=== PATIENT | male | born 1975 | race Caucasian/White ===

== ENCOUNTER 2019-06-29 20:17 | Emergency (ER) | payer OTHER ==
[~2019-06-29] VITALS: Ht 175.3 cm; Wt 113.6 kg
[~2019-06-29 20:17] MED LIST: OLAN10TA3 PO
[2019-06-29] MEDS ORDERED: MethylPREDNISolone SOD SUCC 125 MG/2 ML VIAL IVP ONE (20:30)
[2019-06-29] MEDS ORDERED: IPRATROPIUM BROMIDE 0.5 MG/2.5 ML NEB SOLUTION NEB ONE ×2 (20:30)
[2019-06-29] MEDS ORDERED: ALBUTEROL SULFATE 2.5 MG/0.5 ML NEB SOLUTION NEB ONE ×2 (20:30)
[2019-06-29 20:40] LABS: BASOPHILS % (AUTO) 0.8 % (0.0-2.0); EOSINOPHILS % (AUTO) 5.8 % (1.0-6.0); HEMATOCRIT 47.9 % (41-53); HEMOGLOBIN 16.4 g/dL (13.5-17.5); LYMPHOCYTES # (AUTO) 3.7 K/uL (1.0-4.8); MEAN CORPUSCULAR HEMOGLOBIN 31.3 pg (26.0-34.0); MEAN CORPUSCULAR HGB CONC 34.2 G/dL (31.0-37.0); MEAN CORPUSCULAR VOLUME 92 fL (80-100); MONOCYTES # (AUTO) 0.7 K/uL (0.1-1.0); MONOCYTES % (AUTO) 6.8 % (2.0-9.0); NEUTROPHILS % (AUTO) 49.6 % (40.0-70.0); PLATELET COUNT (AUTO) 269 K/uL (150-450); RED BLOOD CELL COUNT(AUTO) 5.22 MIL/uL (4.50-5.90)
[2019-06-29] MEDS ORDERED: ALBUTEROL SULFATE HFA 90 MCG/PUFF 8 GM INHALER IH ONE (20:45)
[2019-06-29 20:53] LABS: ANION GAP 13 mmol/L (8-16); CARBON DIOXIDE 28 mmol/L (22-29); CHLORIDE 102 mmol/L (98-107); CREATININE 0.87 mg/dL (0.60-1.30); GLOMERULAR FILTR. RATE CALC > 60 mL/min (>60); GLUCOSE,RANDOM 96 mg/dL (70-110); POTASSIUM 4.1 mmol/L (3.5-5.1); SODIUM SERUM 143 mmol/L (136-145); UREA NITROGEN, BLOOD 8 mg/dL (7-18)
[2019-06-29 20:59] LABS: ALANINE AMINOTRANSFERASE 23 U/L (12-78); ALBUMIN 4.1 g/dL (3.4-5.0); ALKALINE PHOSPHATASE 78 U/L (46-116); ASPARTATE AMINOTRANSFERASE 14 U/L (15-37); BILIRUBIN,TOTAL 0.3 mg/dL (0.1-1.0); TOTAL PROTEIN, SERUM 7.2 g/dL (6.4-8.2)
[2019-06-29 21:20] LABS: B-TYPE NATRIURETIC PEPTIDE 6 pg/mL (0-100)
[2019-06-29 21:56] VITALS: BP 119/103
== END 2019-06-29 22:41 | disposition home or self-care (01) ==
LOC: EMS 20:19
DX: J45.901 Unspecified asthma with (acute) exacerbation (principal); F17.210 Nicotine dependence, cigarettes, uncomplicated; J45.909 Unspecified asthma, uncomplicated; F20.9 Schizophrenia, unspecified; Z79.899 Other long term (current) drug therapy; Z88.0 Allergy status to penicillin
CPT/HCPCS: 36415; 71045; 80053; 83880; 85025; 93005; 94644; 96374; 99285; 99406; J2930; J3535

== ENCOUNTER 2019-07-13 06:52 | Emergency (ER) | payer OTHER ==
[~2019-07-13] VITALS: Ht 175.3 cm; Wt 90.9 kg
[2019-07-13] MEDS ORDERED: ALBUTEROL SULFATE 5 MG/ML 20 ML NEB SOLN [BULK] NEB ONE (07:30)
[2019-07-13] MEDS ORDERED: IPRATROPIUM BROMIDE 0.5 MG/2.5 ML NEB SOLUTION NEB ONE (07:30)
[2019-07-13] MEDS ORDERED: PredniSONE 20 MG TABLET PO ONE (07:30)
[2019-07-13] MEDS ORDERED: ALBUTEROL SULFATE HFA 90 MCG/PUFF 8 GM INHALER IH ONE (07:45)
[2019-07-13 10:11] VITALS: BP 145/85
== END 2019-07-13 10:29 | disposition home or self-care (01) ==
LOC: EMS 06:52
DX: J45.901 Unspecified asthma with (acute) exacerbation (principal); F17.210 Nicotine dependence, cigarettes, uncomplicated; F20.9 Schizophrenia, unspecified; Z88.0 Allergy status to penicillin
CPT/HCPCS: 94640; 99284; 99406; J7512; J3535

== ENCOUNTER 2019-07-31 19:29 | Emergency (ER) | payer OTHER, MEDICARE ==
[~2019-07-31] VITALS: Ht 175.3 cm; Wt 104.5 kg
[2019-07-31] MEDS ORDERED: IPRA4AER IH (19:41)
[2019-07-31] MEDS ORDERED: DEXAMETHASONE 4 MG TABLET PO ONE (19:45)
[2019-07-31] MEDS ORDERED: ALBUTEROL SULFATE HFA 90 MCG/PUFF 8 GM INHALER IH ONE (19:45)
[2019-07-31] MEDS ORDERED: 0.9% SODIUM CHLORIDE 5 ML NEB SOLUTION NEB ONE (20:00)
[2019-07-31] MEDS: IPRATROPIUM BROMIDE 0.5 MG/2.5 ML NEB SOLUTION NEB ONE ×2 (20:08→20:28)
[2019-07-31] MEDS: ALBUTEROL SULFATE 5 MG/ML 20 ML NEB SOLN [BULK] NEB ONE ×2 (20:08→20:28)
[2019-07-31 20:40] VITALS: BP 124/73
== END 2019-07-31 20:56 | disposition home or self-care (01) ==
LOC: EMS 19:30
DX: J45.901 Unspecified asthma with (acute) exacerbation (principal); F17.210 Nicotine dependence, cigarettes, uncomplicated; F20.9 Schizophrenia, unspecified; Z88.0 Allergy status to penicillin; Z79.899 Other long term (current) drug therapy
CPT/HCPCS: 94640; 99283; 99406; J8540; J3535

== ENCOUNTER 2020-01-31 22:18 | Emergency (ER) | payer OTHER ==
[~2020-01-31] VITALS: Ht 175.3 cm; Wt 109.1 kg
[~2020-01-31 22:18] MED LIST changes: +IPRA4AER IH
[2020-01-31 22:28] VITALS: BP 125/73
== END 2020-02-01 00:15 | disposition left against medical advice (07) ==
LOC: EMS 22:25
DX: Z04.6 Encounter for general psychiatric examination, requested by authority (principal); Z53.21 Procedure and treatment not carried out due to patient leaving prior to being seen by health care provider

== ENCOUNTER 2020-02-01 10:24 | Emergency (ER) | payer OTHER ==
[~2020-02-01] VITALS: Ht 175.3 cm; Wt 100.0 kg
[2020-02-01] MEDS ORDERED: LORazepam 1 MG TABLET PO ONE (11:30)
[2020-02-01 11:31] VITALS: BP 131/77
== END 2020-02-01 11:33 | disposition home or self-care (01) ==
LOC: EMS 10:25
DX: F20.9 Schizophrenia, unspecified (principal); F17.210 Nicotine dependence, cigarettes, uncomplicated; F31.9 Bipolar disorder, unspecified; Z76.0 Encounter for issue of repeat prescription; Z88.0 Allergy status to penicillin
CPT/HCPCS: 99406

== ENCOUNTER 2020-03-02 17:43 | Emergency (ER) | payer OTHER ==
[~2020-03-02] VITALS: Ht 177.8 cm; Wt 95.5 kg
[2020-03-02 17:46] VITALS: BP 110/76
[2020-03-02 19:21] LABS: EOSINOPHILS % (AUTO) 2.2 % (1.0-6.0); HEMOGLOBIN 15.5 g/dL (13.5-17.5); LYMPHOCYTES % (AUTO) 34.5 % (22.0-44.0); MEAN CORPUSCULAR HEMOGLOBIN 30.5 pg (26.0-34.0); MEAN CORPUSCULAR HGB CONC 33.6 G/dL (31.0-37.0); MEAN CORPUSCULAR VOLUME 91 fL (80-100); MONOCYTES # (AUTO) 0.9 K/uL (0.1-1.0); MONOCYTES % (AUTO) 9.7 % (2.0-9.0); NEUTROPHILS # (AUTO) 4.7 K/uL (1.8-7.7); NEUTROPHILS % (AUTO) 52.6 % (40.0-70.0); PLATELET COUNT (AUTO) 324 K/uL (150-450); RED BLOOD CELL COUNT(AUTO) 5.08 MIL/uL (4.50-5.90); RED CELL DISTRIBUTION WIDTH 13.2 % (11.5-14.5)
[2020-03-02 19:33] LABS: ANION GAP 7 mmol/L (8-16); CALCIUM, TOTAL 9.4 mg/dL (8.8-10.5); CARBON DIOXIDE 32 mmol/L (22-29); CHLORIDE 101 mmol/L (98-107); CREATININE 0.94 mg/dL (0.60-1.30); GLOMERULAR FILTR. RATE CALC > 60 mL/min (>60); GLUCOSE,RANDOM 92 mg/dL (70-110); POTASSIUM 3.5 mmol/L (3.5-5.1); SODIUM SERUM 140 mmol/L (136-145); UREA NITROGEN, BLOOD 12 mg/dL (7-18)
[2020-03-02] MEDS ORDERED: OLANZapine 5 MG TABLET PO ONE (19:45)
[2020-03-02] MEDS ORDERED: LORazepam 1 MG TABLET PO ONE (19:45)
[2020-03-02 19:48] LABS: ALANINE AMINOTRANSFERASE 25 U/L (12-78); ALBUMIN 4.2 g/dL (3.4-5.0); ALKALINE PHOSPHATASE 67 U/L (46-116); ASPARTATE AMINOTRANSFERASE 28 U/L (15-37); BILIRUBIN,TOTAL 0.7 mg/dL (0.1-1.0); TOTAL PROTEIN, SERUM 7.7 g/dL (6.4-8.2)
== END 2020-03-02 20:29 | disposition home or self-care (01) ==
LOC: EMS 17:44
DX: F41.9 Anxiety disorder, unspecified (principal); F20.0 Paranoid schizophrenia; J45.909 Unspecified asthma, uncomplicated; F17.210 Nicotine dependence, cigarettes, uncomplicated; Z88.0 Allergy status to penicillin
CPT/HCPCS: 36415; 80053; 85025; 99283; 99406; G0480

== ENCOUNTER 2020-05-03 11:05 | Emergency (ER) | payer OTHER ==
[~2020-05-03] VITALS: Ht 172.7 cm; Wt 109.1 kg
[2020-05-03] MEDS ORDERED: OLAN10TA3 PO (11:11)
[2020-05-03 11:38] LABS: GLUCOSE, URINE (UA) NEGATIVE (NEGATIVE); KETONES,URINE TRACE mg/dL (NEGATIVE); LEUKOCYTE ESTERASE ,URINE NEGATIVE (NEGATIVE); NITRATE,URINE NEGATIVE (NEGATIVE); OCCULT BLOOD,URINE NEGATIVE (NEGATIVE); PH,URINE 5.5 (5.0-8.0); PROTEIN,URINE POS 1+ (NEGATIVE)
[2020-05-03] MEDS ORDERED: HydrOXYzine PAMOATE 25 MG CAPSULE PO ONE (11:45)
[2020-05-03 11:52] LABS: AMPHET/METH SCREEN,URINE POSITIVE (NEGATIVE); BARBITURATE SCREEN, URINE NEGATIVE (NEGATIVE); BENZODIAZEPINES SCREEN,URINE NEGATIVE (NEGATIVE); CANNABINOID SCREEN,URINE NEGATIVE (NEGATIVE); COCAINE SCREEN,URINE NEGATIVE (NEGATIVE); METHADONE SCREEN, URINE NEGATIVE (NEGATIVE); OPIATE SCREEN,URINE NEGATIVE (NEGATIVE)
[2020-05-03 11:55] LABS: PHENCYCLIDINE SCREEN,URINE NEGATIVE (NEGATIVE)
[2020-05-03 12:12] LABS: APPEARANCE,URINE HAZY (CLEAR); BILIRUBIN,URINE PRELIM. POSITIVE (NEGATIVE)
[2020-05-03] MEDS ORDERED: ASPIRIN 81 MG CHEWABLE TABLET PO ONE (12:15)
[2020-05-03] MEDS ORDERED: ASPIRIN 325 MG TABLET PO ONE (12:15)
[2020-05-03 12:16] LABS: BACTERIA,URINE None Seen /HPF (None Seen); CALCIUM OXALATE CRYSTALS,UR Many /LPF (None Seen); RBC,URINE 0-2 /HPF (0-2); TRANSITIONAL EPI CELLS,URINE Few /LPF (None Seen); WBC,URINE 0-2 /HPF (0-5)
[2020-05-03 12:34] VITALS: BP 117/74
== END 2020-05-03 12:36 | disposition home or self-care (01) ==
LOC: EMS 11:09
DX: F20.9 Schizophrenia, unspecified (principal); F41.9 Anxiety disorder, unspecified; F15.10 Other stimulant abuse, uncomplicated; F17.210 Nicotine dependence, cigarettes, uncomplicated; J45.909 Unspecified asthma, uncomplicated; Z88.0 Allergy status to penicillin
CPT/HCPCS: 99406

== ENCOUNTER 2020-06-10 17:12 | Inpatient (IN) | payer MEDICARE, MEDICAID ==
[~2020-06-10] VITALS: Ht 177.8 cm; Wt 94.3 kg
[~2020-06-10 17:12] MED LIST changes: -IPRA4AER IH
[2020-06-10 18:29] LABS: BASOPHILS % (AUTO) 0.8 % (0.0-2.0); EOSINOPHILS % (AUTO) 5.5 % (1.0-6.0); HEMATOCRIT 49.8 % (41-53); HEMOGLOBIN 16.5 g/dL (13.5-17.5); LYMPHOCYTES # (AUTO) 2.8 K/uL (1.0-4.8); LYMPHOCYTES % (AUTO) 32.8 % (22.0-44.0); MEAN CORPUSCULAR HEMOGLOBIN 30.1 pg (26.0-34.0); MEAN CORPUSCULAR HGB CONC 33.2 G/dL (31.0-37.0); MEAN CORPUSCULAR VOLUME 91 fL (80-100); MONOCYTES # (AUTO) 0.9 K/uL (0.1-1.0); MONOCYTES % (AUTO) 10.9 % (2.0-9.0); NEUTROPHILS # (AUTO) 4.3 K/uL (1.8-7.7); PLATELET COUNT (AUTO) 275 K/uL (150-450); RED CELL DISTRIBUTION WIDTH 13.6 % (11.5-14.5)
[2020-06-10 18:34] LABS: ANION GAP 1 mmol/L (8-16); CALCIUM, TOTAL 9.6 mg/dL (8.8-10.5); CARBON DIOXIDE 35 mmol/L (22-29); CHLORIDE 102 mmol/L (98-107); CREATININE 1.26 mg/dL (0.60-1.30); GLOMERULAR FILTR. RATE CALC > 60 mL/min (>60); GLUCOSE,RANDOM 109 mg/dL (70-110); POTASSIUM 4.3 mmol/L (3.5-5.1); SODIUM SERUM 138 mmol/L (136-145); UREA NITROGEN, BLOOD 16 mg/dL (7-18)
[2020-06-10 18:40] LABS: ALANINE AMINOTRANSFERASE 25 U/L (12-78); ALBUMIN 4.5 g/dL (3.4-5.0); ALKALINE PHOSPHATASE 75 U/L (46-116); ASPARTATE AMINOTRANSFERASE 19 U/L (15-37); BILIRUBIN,TOTAL 0.9 mg/dL (0.1-1.0); TOTAL PROTEIN, SERUM 8.3 g/dL (6.4-8.2)
[2020-06-10 18:59] LABS: AMPHET/METH SCREEN,URINE POSITIVE (NEGATIVE); BARBITURATE SCREEN, URINE NEGATIVE (NEGATIVE); BENZODIAZEPINES SCREEN,URINE NEGATIVE (NEGATIVE); CANNABINOID SCREEN,URINE NEGATIVE (NEGATIVE); COCAINE SCREEN,URINE NEGATIVE (NEGATIVE); METHADONE SCREEN, URINE NEGATIVE (NEGATIVE); OPIATE SCREEN,URINE NEGATIVE (NEGATIVE); PHENCYCLIDINE SCREEN,URINE NEGATIVE (NEGATIVE)
[2020-06-10] MEDS ORDERED: LORazepam 2 MG/ML VIAL IM ONE (20:15)
[2020-06-10] MEDS ORDERED: DiphenhydrAMINE HCL 50 MG/ML VIAL IM ONE (20:15)
[2020-06-10] MEDS ORDERED: HALOPERIDOL LACTATE 5 MG/ML VIAL IM ONE (20:15)
[2020-06-10] MEDS ORDERED: ZOLPIDEM TARTRATE 10 MG TABLET PO PRN (20:45)
[2020-06-11 05:20] LABS: CHOL/HDL RATIO 3.9 (4.2-7.3); CHOLESTEROL 195 mg/dL (131-200); HDL CHOLESTEROL 50 mg/dL (40-60); LDL CHOL (CALC.) 130 mg/dL (0-130); TRIGLYCERIDES 73 mg/dL (15-150)
[2020-06-11] MEDS ORDERED: ONDANSETRON HCL 4 MG TABLET PO PRN (07:30)
[2020-06-11] MEDS ORDERED: LOPERAMIDE HCL 2 MG CAPSULE PO PRN (07:30)
[2020-06-11] MEDS ORDERED: MAG HYDROX/AL HYDROX/SIMETH ES 30 ML SUSPENSION UDCUP PO PRN (07:30)
[2020-06-11] MEDS ORDERED: MAGNESIUM HYDROXIDE SUSPENSION 30 ML UDCUP PO PRN (07:30)
[2020-06-11] MEDS ORDERED: PETROLATUM,WHITE 28 GM JELLY TP PRN (07:30)
[2020-06-11] MEDS ORDERED: ACETAMINOPHEN 325 MG TABLET PO PRN (07:30)
[2020-06-11] MEDS ORDERED: GuaiFENesin/D-METHORPHAN [SUGAR-FREE] 200-20MG/10 ML SYRUP UDCUP PO PRN (07:30)
[2020-06-11] MEDS ORDERED: CloNIDine HCL 0.1 MG TABLET PO PRN (07:30)
[2020-06-11] MEDS ORDERED: DOCUSATE SODIUM 100 MG CAPSULE PO PRN (07:30)
[2020-06-11] MEDS ORDERED: ALBUTEROL SULFATE HFA 90 MCG/PUFF 8 GM INHALER IH PRN (07:30)
[2020-06-11] MEDS ORDERED: IBUPROFEN 400 MG TABLET PO PRN (07:30)
[2020-06-12 02:25] VITALS: BP 107/54
[2020-06-12 08:12] VITALS: BP 126/61
[2020-06-12 16:00] VITALS: BP 138/74
[2020-06-12] MEDS: HALOPERIDOL 5 MG TABLET PO PRN (19:44)
[2020-06-12] MEDS: NICOTINE 14 MG/24 HOUR PATCH TD PRN (19:44)
[2020-06-12] MEDS: LORazepam 2 MG TABLET PO PRN (19:44)
[2020-06-13 06:06] VITALS: BP 128/80
[2020-06-13 08:08] VITALS: BP 124/69
[2020-06-13 08:09] LABS: FREE T4 (FREE THYROXINE) 1.06 ng/dL (0.76-1.46)
[2020-06-13] MEDS: LORazepam 2 MG TABLET PO PRN ×2 (09:14→16:20)
[2020-06-13 16:09] VITALS: BP 116/65
[2020-06-13] MEDS: HALOPERIDOL 5 MG TABLET PO PRN (16:20)
[2020-06-13] MEDS: NICOTINE 14 MG/24 HOUR PATCH TD PRN (16:20)
[2020-06-13] MEDS ORDERED: OLANZapine 10 MG TABLET PO SCH (21:00)
[2020-06-14 06:09] VITALS: BP 110/70
[2020-06-14 08:56] VITALS: BP 119/62
[2020-06-14] MEDS ORDERED: OLAN10TA3 PO (15:49)
== END 2020-06-14 17:00 | disposition home or self-care (01) | DRG 885 ==
LOC: EMS 17:21 → B3A 20:54 → UNDOADMIN 20:54 → B3A 06-11 22:35
PROVIDERS: ADMIT Psychiatry & Neurology Child & Adolescent Psychiatry; ATTEND Psychiatry & Neurology Child & Adolescent Psychiatry
DX: F25.0 Schizoaffective disorder, bipolar type (principal); R45.851 Suicidal ideations; J45.909 Unspecified asthma, uncomplicated; I10 Essential (primary) hypertension; F41.9 Anxiety disorder, unspecified; F17.210 Nicotine dependence, cigarettes, uncomplicated; F15.90 Other stimulant use, unspecified, uncomplicated; F10.10 Alcohol abuse, uncomplicated; Z20.828 Contact with and (suspected) exposure to other viral communicable diseases; Z88.0 Allergy status to penicillin
CPT/HCPCS: 84439; 84443; 87426; 96372; G0480; J1200; J1630; J2060

== ENCOUNTER 2020-06-25 14:23 | Emergency (ER) | payer OTHER, MEDICAID ==
[~2020-06-25] VITALS: Ht 180.3 cm; Wt 76.8 kg
[2020-06-25 14:25] VITALS: BP 141/75
== END 2020-06-25 16:59 | disposition left against medical advice (07) ==
LOC: EMS 14:33
DX: F20.0 Paranoid schizophrenia (principal); F41.9 Anxiety disorder, unspecified; J45.909 Unspecified asthma, uncomplicated; I10 Essential (primary) hypertension; F15.90 Other stimulant use, unspecified, uncomplicated; F17.210 Nicotine dependence, cigarettes, uncomplicated; Z88.0 Allergy status to penicillin
CPT/HCPCS: 99283; Z7502

== ENCOUNTER 2020-06-26 18:54 | Emergency (ER) | payer OTHER ==
[~2020-06-26] VITALS: Ht 175.3 cm; Wt 90.0 kg
[2020-06-26 20:15] VITALS: BP 114/66
[2020-06-26] MEDS ORDERED: OLANZapine 5 MG TABLET PO ONE (20:15)
== END 2020-06-26 20:27 | disposition home or self-care (01) ==
LOC: EMS 18:54
DX: F20.9 Schizophrenia, unspecified (principal); F17.210 Nicotine dependence, cigarettes, uncomplicated; I10 Essential (primary) hypertension; F15.90 Other stimulant use, unspecified, uncomplicated

== ENCOUNTER 2020-07-03 16:39 | Emergency (ER) | payer OTHER ==
[~2020-07-03] VITALS: Ht 175.3 cm; Wt 86.4 kg
[2020-07-03] MEDS ORDERED: LORazepam 2 MG TABLET PO ONE (17:00)
[2020-07-03] MEDS ORDERED: HALOPERIDOL 5 MG TABLET PO ONE (17:00)
[2020-07-03 18:43] LABS: BASOPHILS % (AUTO) 0.8 % (0.0-2.0); HEMATOCRIT 47.9 % (41-53); HEMOGLOBIN 16.2 g/dL (13.5-17.5); LYMPHOCYTES # (AUTO) 3.2 K/uL (1.0-4.8); LYMPHOCYTES % (AUTO) 37.1 % (22.0-44.0); MEAN CORPUSCULAR HEMOGLOBIN 30.2 pg (26.0-34.0); MEAN CORPUSCULAR HGB CONC 33.8 G/dL (31.0-37.0); MEAN CORPUSCULAR VOLUME 89 fL (80-100); MONOCYTES # (AUTO) 0.7 K/uL (0.1-1.0); MONOCYTES % (AUTO) 8.6 % (2.0-9.0); NEUTROPHILS # (AUTO) 4.2 K/uL (1.8-7.7); NEUTROPHILS % (AUTO) 49.5 % (40.0-70.0); PLATELET COUNT (AUTO) 295 K/uL (150-450); RED BLOOD CELL COUNT(AUTO) 5.36 MIL/uL (4.50-5.90); RED CELL DISTRIBUTION WIDTH 13.2 % (11.5-14.5)
[2020-07-03 18:55] LABS: ANION GAP 9 mmol/L (8-16); CALCIUM, TOTAL 8.9 mg/dL (8.8-10.5); CARBON DIOXIDE 32 mmol/L (22-29); CHLORIDE 101 mmol/L (98-107); CREATININE 0.91 mg/dL (0.60-1.30); GLOMERULAR FILTR. RATE CALC > 60 mL/min (>60); GLUCOSE,RANDOM 84 mg/dL (70-110); POTASSIUM 3.3 mmol/L (3.5-5.1); SODIUM SERUM 142 mmol/L (136-145); UREA NITROGEN, BLOOD 10 mg/dL (7-18)
[2020-07-03 19:00] LABS: ALANINE AMINOTRANSFERASE 23 U/L (12-78); ALBUMIN 4.2 g/dL (3.4-5.0); ALKALINE PHOSPHATASE 78 U/L (46-116); ASPARTATE AMINOTRANSFERASE 17 U/L (15-37); BILIRUBIN,TOTAL 1.6 mg/dL (0.1-1.0); TOTAL PROTEIN, SERUM 7.3 g/dL (6.4-8.2)
[2020-07-03 21:00] VITALS: BP 119/79
[2020-07-03] MEDS ORDERED: OLANZapine 5 MG TABLET PO ONE (22:30)
== END 2020-07-03 22:31 | disposition home or self-care (01) ==
LOC: EMS 16:39
DX: F20.9 Schizophrenia, unspecified (principal); F15.10 Other stimulant abuse, uncomplicated; J45.909 Unspecified asthma, uncomplicated; I10 Essential (primary) hypertension; F41.9 Anxiety disorder, unspecified; F17.210 Nicotine dependence, cigarettes, uncomplicated
CPT/HCPCS: 36415; 80053; 85025; 99284; G0480

== ENCOUNTER 2020-07-18 13:07 | Emergency (ER) | payer OTHER ==
[~2020-07-18] VITALS: Ht 175.3 cm; Wt 90.9 kg
[2020-07-18 13:48] VITALS: BP 122/71
== END 2020-07-18 13:51 | disposition home or self-care (01) ==
LOC: EMS 13:12
DX: Z76.0 Encounter for issue of repeat prescription (principal); F20.9 Schizophrenia, unspecified; F41.9 Anxiety disorder, unspecified; I10 Essential (primary) hypertension; J45.909 Unspecified asthma, uncomplicated; F15.90 Other stimulant use, unspecified, uncomplicated; F17.210 Nicotine dependence, cigarettes, uncomplicated; Z88.1 Allergy status to other antibiotic agents
CPT/HCPCS: Z7502

== ENCOUNTER 2020-07-27 11:56 | Emergency (ER) | payer OTHER ==
[~2020-07-27] VITALS: Ht 175.3 cm; Wt 90.9 kg
[2020-07-27 11:59] VITALS: BP 119/65
== END 2020-07-27 12:38 | disposition home or self-care (01) ==
LOC: EMS 11:56
DX: F20.9 Schizophrenia, unspecified (principal); I10 Essential (primary) hypertension; F41.9 Anxiety disorder, unspecified; J45.909 Unspecified asthma, uncomplicated; F17.210 Nicotine dependence, cigarettes, uncomplicated; F15.90 Other stimulant use, unspecified, uncomplicated; Z76.0 Encounter for issue of repeat prescription; Z88.0 Allergy status to penicillin; Z79.899 Other long term (current) drug therapy

== ENCOUNTER 2020-08-05 10:34 | Emergency (ER) | payer OTHER ==
[~2020-08-05] VITALS: Ht 180.3 cm; Wt 86.4 kg
[2020-08-05 10:35] VITALS: BP 115/73
[2020-08-05 11:25] LABS: BASOPHILS % (AUTO) 0.8 % (0.0-2.0); EOSINOPHILS % (AUTO) 2.7 % (1.0-6.0); HEMATOCRIT 45.4 % (41-53); HEMOGLOBIN 15.8 g/dL (13.5-17.5); LYMPHOCYTES # (AUTO) 1.6 K/uL (1.0-4.8); LYMPHOCYTES % (AUTO) 30.9 % (22.0-44.0); MEAN CORPUSCULAR HEMOGLOBIN 31.3 pg (26.0-34.0); MEAN CORPUSCULAR HGB CONC 34.8 G/dL (31.0-37.0); MEAN CORPUSCULAR VOLUME 90 fL (80-100); MONOCYTES # (AUTO) 0.4 K/uL (0.1-1.0); MONOCYTES % (AUTO) 6.9 % (2.0-9.0); NEUTROPHILS # (AUTO) 3.1 K/uL (1.8-7.7); NEUTROPHILS % (AUTO) 58.7 % (40.0-70.0); PLATELET COUNT (AUTO) 255 K/uL (150-450); RED BLOOD CELL COUNT(AUTO) 5.04 MIL/uL (4.50-5.90); RED CELL DISTRIBUTION WIDTH 13.8 % (11.5-14.5)
[2020-08-05 11:35] LABS: ANION GAP 7 mmol/L (8-16); CALCIUM, TOTAL 9.2 mg/dL (8.8-10.5); CARBON DIOXIDE 31 mmol/L (22-29); CHLORIDE 102 mmol/L (98-107); CREATININE 0.72 mg/dL (0.60-1.30); GLOMERULAR FILTR. RATE CALC > 60 mL/min (>60); GLUCOSE,RANDOM 56 mg/dL (70-110); POTASSIUM 3.6 mmol/L (3.5-5.1); SODIUM SERUM 140 mmol/L (136-145); UREA NITROGEN, BLOOD 10 mg/dL (7-18)
[2020-08-05 11:41] LABS: ALANINE AMINOTRANSFERASE 21 U/L (12-78); ALBUMIN 3.6 g/dL (3.4-5.0); ALKALINE PHOSPHATASE 68 U/L (46-116); ASPARTATE AMINOTRANSFERASE 18 U/L (15-37); BILIRUBIN,TOTAL 0.7 mg/dL (0.1-1.0); TOTAL PROTEIN, SERUM 7.1 g/dL (6.4-8.2)
[2020-08-05] MEDS ORDERED: OLANZapine 5 MG RAPDIS TABLET PO ONE (11:45)
== END 2020-08-05 12:05 | disposition home or self-care (01) ==
LOC: EMS 10:35
DX: F20.9 Schizophrenia, unspecified (principal); F17.210 Nicotine dependence, cigarettes, uncomplicated; F41.9 Anxiety disorder, unspecified; J45.909 Unspecified asthma, uncomplicated; I10 Essential (primary) hypertension; F19.90 Other psychoactive substance use, unspecified, uncomplicated; Z88.0 Allergy status to penicillin
CPT/HCPCS: 36415; 80053; 85025; 99283; 99406; G0480

== ENCOUNTER 2020-08-19 11:10 | Emergency (ER) | payer OTHER ==
[~2020-08-19] VITALS: Ht 175.3 cm; Wt 86.4 kg
[2020-08-19 12:17] VITALS: BP 141/84
[2020-08-19] MEDS ORDERED: OLANZapine 5 MG TABLET PO ONE (12:30)
== END 2020-08-19 15:55 | disposition home or self-care (01) ==
LOC: EMS 15:29
DX: F20.9 Schizophrenia, unspecified (principal); F41.9 Anxiety disorder, unspecified; J45.909 Unspecified asthma, uncomplicated; I10 Essential (primary) hypertension; F17.210 Nicotine dependence, cigarettes, uncomplicated; F19.90 Other psychoactive substance use, unspecified, uncomplicated; Z88.0 Allergy status to penicillin

== ENCOUNTER 2020-09-15 11:28 | Emergency (ER) | payer OTHER | END 2020-09-15 13:10 | disposition left against medical advice (07) | LOC: EMS 11:30 | DX: Z76.0 Encounter for issue of repeat prescription (principal); Z53.21 Procedure and treatment not carried out due to patient leaving prior to being seen by health care provider ==

== ENCOUNTER 2020-09-17 16:48 | Emergency (ER) | payer OTHER ==
[~2020-09-17] VITALS: Ht 175.3 cm; Wt 86.4 kg
[2020-09-17 16:50] VITALS: BP 150/90
== END 2020-09-17 18:00 | disposition left against medical advice (07) ==
LOC: EMS 16:50
DX: Z76.0 Encounter for issue of repeat prescription (principal); Z53.21 Procedure and treatment not carried out due to patient leaving prior to being seen by health care provider

== ENCOUNTER 2020-09-21 12:49 | Emergency (ER) | payer OTHER ==
[~2020-09-21] VITALS: Ht 175.3 cm; Wt 100.0 kg
[2020-09-21 12:50] VITALS: BP 148/82
[2020-09-21] MEDS ORDERED: OLAN10TA3 PO (12:52)
[2020-09-21] MEDS ORDERED: OLANZapine 5 MG TABLET PO ONE (13:00)
[2020-09-21 14:30] LABS: BASOPHILS % (AUTO) 0.7 % (0.0-2.0); EOSINOPHILS % (AUTO) 3.8 % (1.0-6.0); HEMATOCRIT 46.9 % (41-53); HEMOGLOBIN 15.9 g/dL (13.5-17.5); LYMPHOCYTES # (AUTO) 2.6 K/uL (1.0-4.8); LYMPHOCYTES % (AUTO) 29.3 % (22.0-44.0); MEAN CORPUSCULAR HEMOGLOBIN 30.4 pg (26.0-34.0); MEAN CORPUSCULAR HGB CONC 33.8 G/dL (31.0-37.0); MEAN CORPUSCULAR VOLUME 90 fL (80-100); MONOCYTES # (AUTO) 0.8 K/uL (0.1-1.0); MONOCYTES % (AUTO) 9.2 % (2.0-9.0); PLATELET COUNT (AUTO) 286 K/uL (150-450); RED BLOOD CELL COUNT(AUTO) 5.22 MIL/uL (4.50-5.90)
[2020-09-21 14:45] LABS: ANION GAP 9 mmol/L (8-16); CALCIUM, TOTAL 9.4 mg/dL (8.8-10.5); CARBON DIOXIDE 27 mmol/L (22-29); CHLORIDE 104 mmol/L (98-107); CREATININE 0.75 mg/dL (0.60-1.30); GLOMERULAR FILTR. RATE CALC > 60 mL/min (>60); GLUCOSE,RANDOM 95 mg/dL (70-110); POTASSIUM 3.9 mmol/L (3.5-5.1); SODIUM SERUM 140 mmol/L (136-145); UREA NITROGEN, BLOOD 11 mg/dL (7-18)
[2020-09-21 14:51] LABS: ALANINE AMINOTRANSFERASE 22 U/L (12-78); ALKALINE PHOSPHATASE 80 U/L (46-116); ASPARTATE AMINOTRANSFERASE 15 U/L (15-37); BILIRUBIN,TOTAL 0.5 mg/dL (0.1-1.0); TOTAL PROTEIN, SERUM 7.8 g/dL (6.4-8.2)
== END 2020-09-21 16:59 | disposition left against medical advice (07) ==
LOC: EMS 12:49
DX: F20.9 Schizophrenia, unspecified (principal); F17.210 Nicotine dependence, cigarettes, uncomplicated; F15.90 Other stimulant use, unspecified, uncomplicated; J45.909 Unspecified asthma, uncomplicated; F41.9 Anxiety disorder, unspecified; Z88.0 Allergy status to penicillin
CPT/HCPCS: 80053; 85025; 99283; G0480

== ENCOUNTER 2020-09-28 16:23 | Emergency (ER) | payer OTHER ==
[~2020-09-28] VITALS: Ht 175.3 cm; Wt 90.9 kg
[2020-09-28 16:32] VITALS: BP 127/71
== END 2020-09-28 19:41 | disposition left against medical advice (07) ==
LOC: EMS 16:23
DX: Z04.6 Encounter for general psychiatric examination, requested by authority (principal); Z53.21 Procedure and treatment not carried out due to patient leaving prior to being seen by health care provider

== ENCOUNTER 2020-09-29 20:45 | Emergency (ER) | payer OTHER ==
[~2020-09-29] VITALS: Ht 175.3 cm; Wt 90.9 kg
[2020-09-30 00:18] LABS: BASOPHILS % (AUTO) 0.6 % (0.0-2.0); EOSINOPHILS % (AUTO) 4.4 % (1.0-6.0); HEMATOCRIT 48.8 % (41-53); HEMOGLOBIN 16.4 g/dL (13.5-17.5); LYMPHOCYTES # (AUTO) 3.3 K/uL (1.0-4.8); LYMPHOCYTES % (AUTO) 36.3 % (22.0-44.0); MEAN CORPUSCULAR HEMOGLOBIN 30.4 pg (26.0-34.0); MEAN CORPUSCULAR HGB CONC 33.6 G/dL (31.0-37.0); MEAN CORPUSCULAR VOLUME 91 fL (80-100); MONOCYTES # (AUTO) 0.7 K/uL (0.1-1.0); MONOCYTES % (AUTO) 7.8 % (2.0-9.0); NEUTROPHILS # (AUTO) 4.6 K/uL (1.8-7.7); NEUTROPHILS % (AUTO) 50.9 % (40.0-70.0); PLATELET COUNT (AUTO) 280 K/uL (150-450); RED BLOOD CELL COUNT(AUTO) 5.39 MIL/uL (4.50-5.90); RED CELL DISTRIBUTION WIDTH 13.8 % (11.5-14.5)
[2020-09-30 00:27] LABS: ANION GAP 5 mmol/L (8-16); CALCIUM, TOTAL 9.2 mg/dL (8.8-10.5); CARBON DIOXIDE 32 mmol/L (22-29); CHLORIDE 103 mmol/L (98-107); CREATININE 0.89 mg/dL (0.60-1.30); GLOMERULAR FILTR. RATE CALC > 60 mL/min (>60); GLUCOSE,RANDOM 91 mg/dL (70-110); POTASSIUM 4.3 mmol/L (3.5-5.1); SODIUM SERUM 140 mmol/L (136-145); UREA NITROGEN, BLOOD 12 mg/dL (7-18)
[2020-09-30 00:33] LABS: ALANINE AMINOTRANSFERASE 20 U/L (12-78); ALBUMIN 4.1 g/dL (3.4-5.0); ALKALINE PHOSPHATASE 71 U/L (46-116); ASPARTATE AMINOTRANSFERASE 15 U/L (15-37); BILIRUBIN,TOTAL 0.6 mg/dL (0.1-1.0); TOTAL PROTEIN, SERUM 7.9 g/dL (6.4-8.2)
[2020-09-30 03:39] VITALS: BP 134/78
[2020-09-30] MEDS ORDERED: OLANZapine 5 MG TABLET PO ONE (05:00)
== END 2020-09-30 05:30 | disposition home or self-care (01) ==
LOC: EMS 20:45
DX: F41.9 Anxiety disorder, unspecified (principal); J45.909 Unspecified asthma, uncomplicated; I10 Essential (primary) hypertension; F20.9 Schizophrenia, unspecified; F17.210 Nicotine dependence, cigarettes, uncomplicated; F12.90 Cannabis use, unspecified, uncomplicated; Z76.0 Encounter for issue of repeat prescription; Z88.0 Allergy status to penicillin
CPT/HCPCS: 80053; 85025; 99283; G0480

== ENCOUNTER 2020-10-18 15:52 | Emergency (ER) | payer OTHER ==
[~2020-10-18] VITALS: Ht 172.7 cm; Wt 77.3 kg
[2020-10-18 15:54] VITALS: BP 143/79
== END 2020-10-18 16:18 | disposition home or self-care (01) ==
LOC: EMS 15:52
DX: F20.9 Schizophrenia, unspecified (principal); F17.210 Nicotine dependence, cigarettes, uncomplicated; F15.10 Other stimulant abuse, uncomplicated; J45.909 Unspecified asthma, uncomplicated; I10 Essential (primary) hypertension; F41.9 Anxiety disorder, unspecified; Z76.0 Encounter for issue of repeat prescription
CPT/HCPCS: Z7502

== ENCOUNTER 2020-11-23 15:37 | Inpatient (IN) | payer MEDICARE, MEDICAID ==
[~2020-11-23] VITALS: Ht 175.3 cm; Wt 90.9 kg
[2020-11-23] MEDS ORDERED: OLANZapine 5 MG TABLET PO ONE (17:00)
[2020-11-23 17:04] LABS: COVID AG,FIA SOURCE NASOPHARYNGEAL
[2020-11-23] MEDS ORDERED: HALOPERIDOL LACTATE 5 MG/ML VIAL IM ONE (17:45)
[2020-11-23] MEDS ORDERED: DiphenhydrAMINE HCL 50 MG/ML VIAL IM ONE (17:45)
[2020-11-23] MEDS ORDERED: LORazepam 2 MG/ML VIAL IM ONE (17:45)
[2020-11-23 20:12] LABS: AMPHET/METH SCREEN,URINE POSITIVE (NEGATIVE); BARBITURATE SCREEN, URINE NEGATIVE (NEGATIVE); BENZODIAZEPINES SCREEN,URINE NEGATIVE (NEGATIVE); CANNABINOID SCREEN,URINE NEGATIVE (NEGATIVE); COCAINE SCREEN,URINE NEGATIVE (NEGATIVE); METHADONE SCREEN, URINE NEGATIVE (NEGATIVE); OPIATE SCREEN,URINE NEGATIVE (NEGATIVE)
[2020-11-23 20:17] LABS: PHENCYCLIDINE SCREEN,URINE NEGATIVE (NEGATIVE)
[2020-11-23 21:57] LABS: APPEARANCE,URINE CLEAR (CLEAR); BILIRUBIN,URINE NEGATIVE (NEGATIVE); GLUCOSE, URINE (UA) NEGATIVE (NEGATIVE); KETONES,URINE NEGATIVE (NEGATIVE); LEUKOCYTE ESTERASE ,URINE NEGATIVE (NEGATIVE); NITRATE,URINE NEGATIVE (NEGATIVE); OCCULT BLOOD,URINE NEGATIVE (NEGATIVE); PROTEIN,URINE NEGATIVE (NEGATIVE); UROBILINOGEN,URINE 0.2 mg/dL (<=1.0)
[2020-11-24] MEDS: HALOPERIDOL 5 MG TABLET PO PRN (07:50)
[2020-11-24] MEDS: LORazepam 2 MG TABLET PO PRN (07:50)
[2020-11-24] MEDS ORDERED: MAG HYDROX/AL HYDROX/SIMETH ES 30 ML SUSPENSION UDCUP PO PRN (08:45)
[2020-11-24] MEDS ORDERED: DOCUSATE SODIUM 100 MG CAPSULE PO PRN (08:45)
[2020-11-24] MEDS ORDERED: MAGNESIUM HYDROXIDE SUSPENSION 30 ML UDCUP PO PRN (08:45)
[2020-11-24] MEDS ORDERED: ONDANSETRON HCL 4 MG TABLET PO PRN (08:45)
[2020-11-24] MEDS ORDERED: ACETAMINOPHEN 325 MG TABLET PO PRN (08:45)
[2020-11-24] MEDS ORDERED: CloNIDine HCL 0.1 MG TABLET PO PRN (08:45)
[2020-11-24] MEDS ORDERED: PETROLATUM,WHITE 28 GM JELLY TP PRN (08:45)
[2020-11-24] MEDS ORDERED: LOPERAMIDE HCL 2 MG CAPSULE PO PRN (08:45)
[2020-11-24] MEDS ORDERED: GuaiFENesin/D-METHORPHAN [SUGAR-FREE] 200-20MG/10 ML SYRUP UDCUP PO PRN (08:45)
[2020-11-24] MEDS ORDERED: IBUPROFEN 400 MG TABLET PO PRN (08:45)
[2020-11-24 10:07] VITALS: BP 139/82
[2020-11-24] MEDS: NICOTINE 14 MG/24 HOUR PATCH TD PRN (10:07)
[2020-11-24 16:30] VITALS: BP 114/53
[2020-11-24] MEDS: COLLOIDAL OATMEAL/DIMETH 227 GM LOTION TP SCH (16:34)
[2020-11-24] MEDS ORDERED: OLANZapine 10 MG TABLET PO SCH (21:00)
[2020-11-25] VITALS: BP 119/58
[2020-11-25 08:25] VITALS: BP 122/71
[2020-11-25] MEDS: COLLOIDAL OATMEAL/DIMETH 227 GM LOTION TP SCH ×2 (08:58→16:32)
[2020-11-25] MEDS: LORazepam 2 MG TABLET PO PRN ×2 (11:01→16:32)
[2020-11-25] MEDS: HALOPERIDOL 5 MG TABLET PO PRN (11:01)
[2020-11-25] MEDS: NICOTINE 14 MG/24 HOUR PATCH TD PRN (11:05)
[2020-11-25 16:27] VITALS: BP 137/87
[2020-11-25] MEDS: ZOLPIDEM TARTRATE 10 MG TABLET PO PRN (21:00)
[2020-11-25] MEDS: OLANZapine 10 MG TABLET PO SCH (21:01)
[2020-11-26 06:22] VITALS: BP 125/62
[2020-11-26 08:32] VITALS: BP 103/68
[2020-11-26] MEDS: COLLOIDAL OATMEAL/DIMETH 227 GM LOTION TP SCH ×2 (09:28→17:08)
[2020-11-26] MEDS: HALOPERIDOL 5 MG TABLET PO PRN (09:32)
[2020-11-26] MEDS: LORazepam 2 MG TABLET PO PRN ×2 (09:32→13:41)
[2020-11-26] MEDS: NICOTINE 14 MG/24 HOUR PATCH TD PRN (14:03)
[2020-11-26 16:20] VITALS: BP 101/60
[2020-11-26] MEDS: OLANZapine 10 MG TABLET PO SCH (20:17)
[2020-11-26] MEDS: ZOLPIDEM TARTRATE 10 MG TABLET PO PRN (20:19)
[2020-11-27 06:24] VITALS: BP 110/64
[2020-11-27 08:57] VITALS: BP 115/66
[2020-11-27] MEDS: COLLOIDAL OATMEAL/DIMETH 227 GM LOTION TP SCH ×2 (09:51→16:19)
[2020-11-27] MEDS: LORazepam 2 MG TABLET PO PRN ×2 (10:20→15:40)
[2020-11-27] MEDS: NICOTINE 14 MG/24 HOUR PATCH TD PRN (15:27)
[2020-11-27 17:04] VITALS: BP 117/64
[2020-11-27] MEDS: OLANZapine 10 MG TABLET PO SCH (20:06)
[2020-11-28 01:02] VITALS: BP 119/67
[2020-11-28] MEDS: COLLOIDAL OATMEAL/DIMETH 227 GM LOTION TP SCH ×2 (08:16→16:24)
[2020-11-28 08:31] LABS: COVID AG,FIA SOURCE NASOPHARYNGEAL
[2020-11-28 09:01] VITALS: BP 146/64
[2020-11-28] MEDS: LORazepam 2 MG TABLET PO PRN ×2 (10:09→16:21)
[2020-11-28] MEDS: ALBUTEROL SULFATE HFA 90 MCG/PUFF 8 GM INHALER IH PRN ×2 (10:19→17:08)
[2020-11-28] MEDS: NICOTINE 14 MG/24 HOUR PATCH TD PRN (10:35)
[2020-11-28 16:33] VITALS: BP 109/88
[2020-11-28] MEDS: OLANZapine 10 MG TABLET PO SCH (20:06)
[2020-11-28] MEDS: ZOLPIDEM TARTRATE 10 MG TABLET PO PRN (20:59)
[2020-11-29 06:38] VITALS: BP 107/71
[2020-11-29 08:37] VITALS: BP 129/69
[2020-11-29] MEDS: COLLOIDAL OATMEAL/DIMETH 227 GM LOTION TP SCH ×2 (09:02→16:10)
[2020-11-29] MEDS: LORazepam 2 MG TABLET PO PRN ×2 (11:42→17:56)
[2020-11-29 16:34] VITALS: BP 121/66
[2020-11-29] MEDS: OLANZapine 10 MG TABLET PO SCH (20:02)
[2020-11-30 06:14] VITALS: BP 102/57
[2020-11-30] MEDS ORDERED: OLAN10TA20 PO (08:12)
[2020-11-30 08:55] VITALS: BP 117/62
[2020-11-30] MEDS: COLLOIDAL OATMEAL/DIMETH 227 GM LOTION TP SCH (09:00)
== END 2020-11-30 19:34 | disposition home or self-care (01) | DRG 885 ==
LOC: EMS 15:37 → B2S 21:31
DX: F20.0 Paranoid schizophrenia (principal); R45.851 Suicidal ideations; H54.8 Legal blindness, as defined in USA; I10 Essential (primary) hypertension; J45.909 Unspecified asthma, uncomplicated; Z20.822 Contact with and (suspected) exposure to COVID-19; Z53.20 Procedure and treatment not carried out because of patient's decision for unspecified reasons; Z87.891 Personal history of nicotine dependence; Z98.2 Presence of cerebrospinal fluid drainage device; F15.10 Other stimulant abuse, uncomplicated; F10.10 Alcohol abuse, uncomplicated
CPT/HCPCS: 87426; 99291; J1200; J1630; J2060; J3535

== ENCOUNTER 2021-05-10 09:48 | Emergency (ER) | payer MEDICARE, MEDICAID ==
[~2021-05-10] VITALS: Ht 175.3 cm; Wt 100.0 kg
[~2021-05-10 09:48] MED LIST changes: +OLAN10 PO; -OLAN10TA3 PO
[2021-05-10 10:15] VITALS: BP 125/74
[2021-05-10] MEDS ORDERED: OLANZapine 5 MG TABLET PO ONE (10:30)
== END 2021-05-10 10:41 | disposition home or self-care (01) ==
LOC: EMS 10:17
DX: F20.9 Schizophrenia, unspecified (principal); F41.9 Anxiety disorder, unspecified; J45.909 Unspecified asthma, uncomplicated; I10 Essential (primary) hypertension; F17.210 Nicotine dependence, cigarettes, uncomplicated; F19.90 Other psychoactive substance use, unspecified, uncomplicated; Z76.0 Encounter for issue of repeat prescription; Z88.0 Allergy status to penicillin
CPT/HCPCS: 99283

== ENCOUNTER 2021-06-05 18:03 | Emergency (ER) | payer OTHER ==
[~2021-06-05] VITALS: Ht 175.3 cm; Wt 90.9 kg
[2021-06-05 18:30] VITALS: BP 105/70
== END 2021-06-05 19:00 | disposition home or self-care (01) ==
LOC: EMS 18:08
DX: F20.9 Schizophrenia, unspecified (principal); I10 Essential (primary) hypertension; J45.909 Unspecified asthma, uncomplicated; F41.9 Anxiety disorder, unspecified; F15.90 Other stimulant use, unspecified, uncomplicated; F17.210 Nicotine dependence, cigarettes, uncomplicated; Z76.0 Encounter for issue of repeat prescription; Z88.0 Allergy status to penicillin; Z79.899 Other long term (current) drug therapy
CPT/HCPCS: 99281; Z7502

== ENCOUNTER 2021-07-02 16:12 | Emergency (ER) | payer OTHER | END 2021-07-02 18:32 | disposition left against medical advice (07) | LOC: EMS 16:12 | DX: Z53.21 Procedure and treatment not carried out due to patient leaving prior to being seen by health care provider (principal) ==

== ENCOUNTER 2021-07-05 13:18 | Inpatient (IN) | payer MEDICARE, MEDICAID ==
[~2021-07-05] VITALS: Ht 175.3 cm; Wt 82.1 kg
[2021-07-05] MEDS ORDERED: OLAN10TA74 PO (13:41)
[2021-07-05 14:45] LABS: BASOPHILS % (AUTO) 0.4 % (0.0-2.0); EOSINOPHILS % (AUTO) 0.5 % (1.0-6.0); HEMATOCRIT 45.2 % (41-53); HEMOGLOBIN 15.7 g/dL (13.5-17.5); LYMPHOCYTES # (AUTO) 1.8 K/uL (1.0-4.8); LYMPHOCYTES % (AUTO) 15.4 % (22.0-44.0); MEAN CORPUSCULAR HEMOGLOBIN 29.8 pg (26.0-34.0); MEAN CORPUSCULAR HGB CONC 34.8 G/dL (31.0-37.0); MEAN CORPUSCULAR VOLUME 86 fL (80-100); MONOCYTES # (AUTO) 1.5 K/uL (0.1-1.0); MONOCYTES % (AUTO) 12.6 % (2.0-9.0); NEUTROPHILS # (AUTO) 8.4 K/uL (1.8-7.7); NEUTROPHILS % (AUTO) 71.1 % (40.0-70.0); PLATELET COUNT (AUTO) 421 K/uL (150-450); RED BLOOD CELL COUNT(AUTO) 5.28 MIL/uL (4.50-5.90)
[2021-07-05 15:00] LABS: ALANINE AMINOTRANSFERASE 25 U/L (12-78); ALBUMIN 3.6 g/dL (3.4-5.0); ALKALINE PHOSPHATASE 87 U/L (46-116); ANION GAP 9 mmol/L (8-16); ASPARTATE AMINOTRANSFERASE 19 U/L (15-37); BILIRUBIN,TOTAL 0.6 mg/dL (0.1-1.0); CALCIUM, TOTAL 9.1 mg/dL (8.8-10.5); CARBON DIOXIDE 31 mmol/L (22-29); CHLORIDE 95 mmol/L (98-107); CREATININE 0.92 mg/dL (0.60-1.30); GLOMERULAR FILTR. RATE CALC > 60 mL/min (>60); GLUCOSE,RANDOM 132 mg/dL (70-110); SODIUM SERUM 135 mmol/L (136-145); TOTAL PROTEIN, SERUM 7.5 g/dL (6.4-8.2); UREA NITROGEN, BLOOD 16 mg/dL (7-18)
[2021-07-05 15:02] LABS: POTASSIUM 2.9 mmol/L (3.5-5.1)
[2021-07-05] MEDS: POTASSIUM CHLORIDE 20 MEQ ER TABLET PO ONE ×2 (15:11→15:22)
[2021-07-05] MEDS ORDERED: ZOLPIDEM TARTRATE 10 MG TABLET PO PRN (16:15)
[2021-07-05] MEDS ORDERED: OLANZapine 5 MG RAPDIS TABLET PO PRN (16:15)
[2021-07-05 16:27] LABS: COVID AG,FIA SOURCE NASOPHARYNGEAL
[2021-07-05 19:41] VITALS: BP 123/74
[2021-07-05] MEDS ORDERED: INFLUENZA VIRUS VACCINE QVS 2021-22 (6MO+)/PF 60 MCG/0.5 ML SYRINGE IM. ONE (20:15)
[2021-07-06 01:21] LABS: CHOL/HDL RATIO 3.1 (4.2-7.3); CHOLESTEROL 135 mg/dL (131-200); FREE T4 (FREE THYROXINE) 1.34 ng/dL (0.76-1.46); HDL CHOLESTEROL 43 mg/dL (40-60); LDL CHOL (CALC.) 72 mg/dL (0-130); THYROID STIMULATING HORMONE 0.55 uIU/mL (0.36-3.74); TRIGLYCERIDES 99 mg/dL (15-150)
[2021-07-06 06:07] VITALS: BP 107/69
[2021-07-06 08:45] VITALS: BP 105/63
[2021-07-06] MEDS: COLLOIDAL OATMEAL/DIMETH 227 GM LOTION TP SCH ×2 (10:53→16:50)
[2021-07-06] MEDS ORDERED: MAGNESIUM HYDROXIDE SUSPENSION 30 ML UDCUP PO PRN ×2 (15:30→15:45)
[2021-07-06] MEDS ORDERED: GuaiFENesin/D-METHORPHAN [SUGAR-FREE] 200-20MG/10 ML SYRUP UDCUP PO PRN (15:30)
[2021-07-06] MEDS ORDERED: ALBUTEROL SULFATE HFA 90 MCG/PUFF 8 GM INHALER IH PRN (15:30)
[2021-07-06] MEDS ORDERED: ONDANSETRON HCL 4 MG TABLET PO PRN ×2 (15:30→15:45)
[2021-07-06] MEDS ORDERED: DOCUSATE SODIUM 100 MG CAPSULE PO PRN ×2 (15:30→15:45)
[2021-07-06] MEDS ORDERED: MAG HYDROX/AL HYDROX/SIMETH ES 30 ML SUSPENSION UDCUP PO PRN ×2 (15:30→15:45)
[2021-07-06] MEDS ORDERED: ACETAMINOPHEN 325 MG TABLET PO PRN ×2 (15:30→15:45)
[2021-07-06] MEDS ORDERED: CloNIDine HCL 0.1 MG TABLET PO PRN (15:30)
[2021-07-06] MEDS ORDERED: IBUPROFEN 400 MG TABLET PO PRN ×2 (15:30→15:45)
[2021-07-06] MEDS ORDERED: PETROLATUM,WHITE 28 GM JELLY TP PRN ×2 (15:30→15:45)
[2021-07-06] MEDS ORDERED: LOPERAMIDE HCL 2 MG CAPSULE PO PRN (15:30)
[2021-07-06] MEDS ORDERED: POTASSIUM CHLORIDE 20 MEQ ER TABLET PO ONE (15:45)
[2021-07-06 16:23] VITALS: BP 128/65
[2021-07-06] MEDS: OLANZapine 10 MG TABLET PO SCH (20:06)
[2021-07-06] MEDS: ALBUTEROL SULFATE HFA 90 MCG/PUFF 8 GM INHALER IH PRN (20:32)
[2021-07-07 05:45] VITALS: BP 118/71
[2021-07-07 07:26] LABS: BASOPHILS % (AUTO) 0.6 % (0.0-2.0); EOSINOPHILS % (AUTO) 1.8 % (1.0-6.0); HEMATOCRIT 42.6 % (41-53); HEMOGLOBIN 14.5 g/dL (13.5-17.5); LYMPHOCYTES % (AUTO) 26.9 % (22.0-44.0); MEAN CORPUSCULAR HEMOGLOBIN 29.9 pg (26.0-34.0); MEAN CORPUSCULAR VOLUME 88 fL (80-100); MONOCYTES # (AUTO) 1.1 K/uL (0.1-1.0); MONOCYTES % (AUTO) 10.3 % (2.0-9.0); NEUTROPHILS # (AUTO) 6.7 K/uL (1.8-7.7); NEUTROPHILS % (AUTO) 60.4 % (40.0-70.0); PLATELET COUNT (AUTO) 377 K/uL (150-450); RED BLOOD CELL COUNT(AUTO) 4.84 MIL/uL (4.50-5.90); RED CELL DISTRIBUTION WIDTH 13.3 % (11.5-14.5)
[2021-07-07 08:06] LABS: ANION GAP 4 mmol/L (8-16); CALCIUM, TOTAL 8.8 mg/dL (8.8-10.5); CARBON DIOXIDE 32 mmol/L (22-29); CHLORIDE 103 mmol/L (98-107); CREATININE 0.77 mg/dL (0.60-1.30); GLOMERULAR FILTR. RATE CALC > 60 mL/min (>60); GLUCOSE,RANDOM 81 mg/dL (70-110); POTASSIUM 3.8 mmol/L (3.5-5.1); SODIUM SERUM 139 mmol/L (136-145); THYROID STIMULATING HORMONE 0.66 uIU/mL (0.36-3.74); UREA NITROGEN, BLOOD 10 mg/dL (7-18)
[2021-07-07 08:32] VITALS: BP 121/73
[2021-07-07] MEDS: COLLOIDAL OATMEAL/DIMETH 227 GM LOTION TP SCH ×2 (08:52→16:45)
[2021-07-07 16:20] VITALS: BP 106/70
[2021-07-07] MEDS: LORazepam 2 MG TABLET PO PRN (20:28)
[2021-07-07] MEDS: OLANZapine 10 MG TABLET PO SCH (20:28)
[2021-07-08 06:10] VITALS: BP 118/72
[2021-07-08 08:31] VITALS: BP 128/69
[2021-07-08] MEDS: COLLOIDAL OATMEAL/DIMETH 227 GM LOTION TP SCH ×2 (08:58→16:44)
[2021-07-08 16:21] VITALS: BP 108/62
[2021-07-08] MEDS: LORazepam 2 MG TABLET PO PRN (17:01)
[2021-07-08] MEDS: OLANZapine 10 MG TABLET PO SCH (21:02)
[2021-07-09 08:23] VITALS: BP 129/86
[2021-07-09] MEDS: COLLOIDAL OATMEAL/DIMETH 227 GM LOTION TP SCH ×2 (08:45→16:24)
[2021-07-09] MEDS: LORazepam 2 MG TABLET PO PRN ×2 (08:46→20:05)
[2021-07-09] MEDS: ALBUTEROL SULFATE HFA 90 MCG/PUFF 8 GM INHALER IH PRN (13:47)
[2021-07-09 16:18] VITALS: BP 119/68
[2021-07-09] MEDS: OLANZapine 10 MG TABLET PO SCH (20:42)
[2021-07-10 06:24] VITALS: BP 125/74
[2021-07-10 08:52] VITALS: BP 129/94
[2021-07-10] MEDS: COLLOIDAL OATMEAL/DIMETH 227 GM LOTION TP SCH ×2 (09:00→16:46)
[2021-07-10] MEDS: LORazepam 2 MG TABLET PO PRN ×3 (12:09→20:46)
[2021-07-10 16:27] VITALS: BP 115/74
[2021-07-10] MEDS: NICOTINE 14 MG/24 HOUR PATCH TD PRN (17:24)
[2021-07-10] MEDS: OLANZapine 10 MG TABLET PO SCH (20:36)
[2021-07-11 00:19] VITALS: BP 111/71
[2021-07-11 08:46] VITALS: BP 109/65
[2021-07-11] MEDS: COLLOIDAL OATMEAL/DIMETH 227 GM LOTION TP SCH ×2 (08:54→16:50)
[2021-07-11] MEDS: LORazepam 2 MG TABLET PO PRN ×2 (13:35→20:16)
[2021-07-11 16:16] VITALS: BP 115/64
[2021-07-11] MEDS: NICOTINE 14 MG/24 HOUR PATCH TD PRN (16:58)
[2021-07-11] MEDS: OLANZapine 10 MG TABLET PO SCH (20:16)
[2021-07-12 06:35] VITALS: BP 116/68
[2021-07-12 08:33] LABS: COVID AG,FIA SOURCE NASAL SWAB
[2021-07-12 08:51] VITALS: BP 132/62
[2021-07-12] MEDS: LORazepam 2 MG TABLET PO PRN (10:14)
[2021-07-12] MEDS: ALBUTEROL SULFATE HFA 90 MCG/PUFF 8 GM INHALER IH PRN (10:15)
[2021-07-12] MEDS: COLLOIDAL OATMEAL/DIMETH 227 GM LOTION TP SCH (10:15)
== END 2021-07-12 13:15 | disposition home or self-care (01) | DRG 885 ==
LOC: EMS 13:28 → B3A 16:25 → B2S 07-12 08:46
PROVIDERS: ADMIT Psychiatry & Neurology Child & Adolescent Psychiatry; ATTEND Psychiatry & Neurology Child & Adolescent Psychiatry
DX: F20.0 Paranoid schizophrenia (principal); R73.9 Hyperglycemia, unspecified; D72.829 Elevated white blood cell count, unspecified; F41.9 Anxiety disorder, unspecified; E87.6 Hypokalemia; Z20.822 Contact with and (suspected) exposure to COVID-19; F10.10 Alcohol abuse, uncomplicated; F19.10 Other psychoactive substance abuse, uncomplicated; I10 Essential (primary) hypertension; Z59.00 Homelessness unspecified; Z91.14 Patient's other noncompliance with medication regimen; Z98.2 Presence of cerebrospinal fluid drainage device; Z88.0 Allergy status to penicillin; Z28.21 Immunization not carried out because of patient refusal
CPT/HCPCS: 80048; 80053; 80061; 84439; 84443; 85025; 99285; G0480; J3535

== ENCOUNTER 2021-08-30 00:28 | Emergency (ER) | payer MEDICARE, OTHER ==
[~2021-08-30] VITALS: Ht 175.3 cm; Wt 90.9 kg
[~2021-08-30 00:28] MED LIST changes: -OLAN10 PO; +OLAN10TA74 PO
[2021-08-30 00:32] VITALS: BP 130/82
== END 2021-08-30 02:34 | disposition home or self-care (01) ==
LOC: EMS 00:29
DX: F20.9 Schizophrenia, unspecified (principal); F12.90 Cannabis use, unspecified, uncomplicated; Z76.0 Encounter for issue of repeat prescription; Z88.0 Allergy status to penicillin
CPT/HCPCS: 99281; Z7502

== ENCOUNTER 2021-09-18 14:13 | Emergency (ER) | payer OTHER ==
[~2021-09-18] VITALS: Ht 175.3 cm; Wt 90.9 kg
[2021-09-18 14:24] VITALS: BP 134/90
== END 2021-09-18 15:15 | disposition home or self-care (01) ==
LOC: EMS 14:44
DX: F20.9 Schizophrenia, unspecified (principal); F12.90 Cannabis use, unspecified, uncomplicated; Z76.0 Encounter for issue of repeat prescription; Z88.0 Allergy status to penicillin
CPT/HCPCS: 99281; Z7502

== ENCOUNTER 2021-10-09 18:11 | Inpatient (IN) | payer MEDICARE, MEDICAID ==
[~2021-10-09] VITALS: Ht 175.3 cm; Wt 113.9 kg
[2021-10-09 19:39] LABS: RED BLOOD CELL COUNT(AUTO) 4.87 MIL/uL (4.50-5.90)
[2021-10-09 19:40] LABS: BASOPHILS % (AUTO) 0.8 % (0.0-2.0); EOSINOPHILS % (AUTO) 2.5 % (1.0-6.0); HEMOGLOBIN 14.7 g/dL (13.5-17.5); LYMPHOCYTES # (AUTO) 2.3 K/uL (1.0-4.8); MEAN CORPUSCULAR HEMOGLOBIN 30.2 pg (26.0-34.0); MEAN CORPUSCULAR HGB CONC 34.2 G/dL (31.0-37.0); MEAN CORPUSCULAR VOLUME 88 fL (80-100); MONOCYTES # (AUTO) 0.6 K/uL (0.1-1.0); MONOCYTES % (AUTO) 8.8 % (2.0-9.0); NEUTROPHILS # (AUTO) 3.4 K/uL (1.8-7.7); NEUTROPHILS % (AUTO) 52.9 % (40.0-70.0); PLATELET COUNT (AUTO) 299 K/uL (150-450); RED CELL DISTRIBUTION WIDTH 14.4 % (11.5-14.5)
[2021-10-09 19:56] LABS: ANION GAP 6 mmol/L (8-16); CALCIUM, TOTAL 9.2 mg/dL (8.8-10.5); CARBON DIOXIDE 34 mmol/L (22-29); CHLORIDE 104 mmol/L (98-107); CREATININE 0.99 mg/dL (0.60-1.30); GLOMERULAR FILTR. RATE CALC > 60 mL/min (>60); GLUCOSE,RANDOM 81 mg/dL (70-110); POTASSIUM 3.9 mmol/L (3.5-5.1); SODIUM SERUM 144 mmol/L (136-145); UREA NITROGEN, BLOOD 14 mg/dL (7-18)
[2021-10-09 20:03] LABS: ALANINE AMINOTRANSFERASE 20 U/L (12-78); ALBUMIN 3.9 g/dL (3.4-5.0); ALKALINE PHOSPHATASE 88 U/L (46-116); ASPARTATE AMINOTRANSFERASE 19 U/L (15-37); BILIRUBIN,TOTAL 0.4 mg/dL (0.1-1.0); TOTAL PROTEIN, SERUM 7.5 g/dL (6.4-8.2)
[2021-10-09 21:11] LABS: COVID AG,FIA SOURCE NASOPHARYNGEAL
[2021-10-10 01:57] LABS: CHOL/HDL RATIO 2.3 (4.2-7.3); CHOLESTEROL 138 mg/dL (131-200); HDL CHOLESTEROL 60 mg/dL (40-60); LDL CHOL (CALC.) 56 mg/dL (0-130); TRIGLYCERIDES 111 mg/dL (15-150)
[2021-10-10] MEDS: ZOLPIDEM TARTRATE 10 MG TABLET PO PRN (09:12)
[2021-10-10 10:30] LABS: APPEARANCE,URINE CLOUDY (CLEAR); BILIRUBIN,URINE NEGATIVE (NEGATIVE); GLUCOSE, URINE (UA) NEGATIVE (NEGATIVE); KETONES,URINE NEGATIVE (NEGATIVE); LEUKOCYTE ESTERASE ,URINE NEGATIVE (NEGATIVE); NITRATE,URINE NEGATIVE (NEGATIVE); OCCULT BLOOD,URINE NEGATIVE (NEGATIVE); PROTEIN,URINE NEGATIVE (NEGATIVE); UROBILINOGEN,URINE 0.2 mg/dL (<=1.0)
[2021-10-10 10:35] LABS: AMPHET/METH SCREEN,URINE POSITIVE (NEGATIVE); BARBITURATE SCREEN, URINE NEGATIVE (NEGATIVE); BENZODIAZEPINES SCREEN,URINE NEGATIVE (NEGATIVE); CANNABINOID SCREEN,URINE POSITIVE (NEGATIVE); COCAINE SCREEN,URINE NEGATIVE (NEGATIVE); METHADONE SCREEN, URINE NEGATIVE (NEGATIVE); OPIATE SCREEN,URINE NEGATIVE (NEGATIVE)
[2021-10-10 10:43] LABS: PHENCYCLIDINE SCREEN,URINE NEGATIVE (NEGATIVE)
[2021-10-10 22:01] VITALS: BP 115/70
[2021-10-10] MEDS ORDERED: INFLUENZA VIRUS VACCINE QVS 2021-22 (6MO+)/PF 60 MCG/0.5 ML SYRINGE IM. ONE (22:15)
[2021-10-10] MEDS ORDERED: PNEUMOCOCCAL VACCINE POLYVALENT 0.5 ML VIAL [PPSV23] IM. ONE (22:15)
[2021-10-11 08:00] VITALS: BP 107/65
[2021-10-11] MEDS: LORazepam 2 MG TABLET PO PRN ×2 (12:16→17:00)
[2021-10-11] MEDS: HALOPERIDOL 5 MG TABLET PO PRN ×2 (12:16→17:00)
[2021-10-11] MEDS: NICOTINE 14 MG/24 HOUR PATCH TD PRN (12:18)
[2021-10-11] MEDS: ALBUTEROL SULFATE HFA 90 MCG/PUFF 8 GM INHALER IH PRN (12:21)
[2021-10-11 16:00] VITALS: BP 105/72
[2021-10-11] MEDS ORDERED: MAGNESIUM HYDROXIDE SUSPENSION 30 ML UDCUP PO PRN (19:00)
[2021-10-11] MEDS ORDERED: OMEPRAZOLE 20 MG CAPSULE PO PRN (19:00)
[2021-10-11] MEDS ORDERED: MAG HYDROX/AL HYDROX/SIMETH ES 30 ML SUSPENSION UDCUP PO PRN (19:00)
[2021-10-11] MEDS ORDERED: CloNIDine HCL 0.1 MG TABLET PO PRN (19:00)
[2021-10-11] MEDS ORDERED: BENZOCAINE/MENTHOL LOZENGE PO PRN (19:00)
[2021-10-11] MEDS ORDERED: ONDANSETRON HCL 4 MG TABLET PO PRN (19:00)
[2021-10-11] MEDS ORDERED: PETROLATUM,WHITE 28 GM JELLY TP PRN (19:00)
[2021-10-11] MEDS ORDERED: LOPERAMIDE HCL 2 MG CAPSULE PO PRN (19:00)
[2021-10-11] MEDS ORDERED: DOCUSATE SODIUM 100 MG CAPSULE PO PRN (19:00)
[2021-10-11] MEDS ORDERED: BACITRACIN 28 GM OINTMENT TP PRN (19:00)
[2021-10-11] MEDS: OLANZapine 10 MG TABLET PO SCH (20:42)
[2021-10-12 08:00] VITALS: BP 116/62
[2021-10-12] MEDS: LORazepam 2 MG TABLET PO PRN ×2 (16:30→20:38)
[2021-10-12] MEDS: HALOPERIDOL 5 MG TABLET PO PRN (16:30)
[2021-10-12 16:55] VITALS: BP 109/78
[2021-10-12] MEDS: OLANZapine 10 MG TABLET PO SCH (20:37)
[2021-10-12] MEDS: ZOLPIDEM TARTRATE 10 MG TABLET PO PRN (20:42)
[2021-10-13] MEDS: LORazepam 2 MG TABLET PO PRN ×2 (10:07→16:04)
[2021-10-13] MEDS: HALOPERIDOL 5 MG TABLET PO PRN (16:03)
[2021-10-13] MEDS: ALBUTEROL SULFATE HFA 90 MCG/PUFF 8 GM INHALER IH PRN (16:03)
[2021-10-13 16:17] VITALS: BP 128/83
[2021-10-13] MEDS: ZOLPIDEM TARTRATE 10 MG TABLET PO PRN (20:23)
[2021-10-13] MEDS: OLANZapine 10 MG TABLET PO SCH (20:23)
[2021-10-14] MEDS: LORazepam 2 MG TABLET PO PRN ×2 (11:32→15:47)
[2021-10-14] MEDS: HALOPERIDOL 5 MG TABLET PO PRN ×2 (11:32→15:47)
[2021-10-14] MEDS: ALBUTEROL SULFATE HFA 90 MCG/PUFF 8 GM INHALER IH PRN (11:34)
[2021-10-14 13:45] VITALS: BP 116/77
[2021-10-14] MEDS: ZOLPIDEM TARTRATE 10 MG TABLET PO PRN (20:02)
[2021-10-14] MEDS: OLANZapine 10 MG TABLET PO SCH (20:02)
[2021-10-15 08:40] VITALS: BP 150/78
[2021-10-15] MEDS: ALBUTEROL SULFATE HFA 90 MCG/PUFF 8 GM INHALER IH PRN (10:26)
[2021-10-15] MEDS: NICOTINE 14 MG/24 HOUR PATCH TD PRN (10:53)
[2021-10-15] MEDS: IBUPROFEN 600 MG TABLET PO PRN (11:42)
[2021-10-15] MEDS: HALOPERIDOL 5 MG TABLET PO PRN (15:42)
[2021-10-15] MEDS: LORazepam 2 MG TABLET PO PRN (15:42)
[2021-10-15] MEDS: ACETAMINOPHEN 325 MG TABLET PO PRN (16:00)
[2021-10-15 16:02] VITALS: BP 117/75
[2021-10-15] MEDS: OLANZapine 10 MG TABLET PO SCH (20:42)
[2021-10-16 08:00] VITALS: BP 115/69
[2021-10-16] MEDS: NICOTINE 14 MG/24 HOUR PATCH TD PRN (12:08)
[2021-10-16] MEDS: LORazepam 2 MG TABLET PO PRN ×2 (13:40→17:44)
[2021-10-16] MEDS: HALOPERIDOL 5 MG TABLET PO PRN (15:42)
[2021-10-16 16:34] VITALS: BP 121/64
[2021-10-16] MEDS: ACETAMINOPHEN 325 MG TABLET PO PRN (16:34)
[2021-10-16] MEDS: OLANZapine 10 MG TABLET PO SCH (20:26)
[2021-10-17 08:00] VITALS: BP 161/86
[2021-10-17] MEDS: LORazepam 2 MG TABLET PO PRN ×3 (08:36→16:56)
[2021-10-17] MEDS: ALBUTEROL SULFATE HFA 90 MCG/PUFF 8 GM INHALER IH PRN (08:36)
[2021-10-17] MEDS: HALOPERIDOL 5 MG TABLET PO PRN ×3 (08:36→16:56)
[2021-10-17] MEDS: NICOTINE 14 MG/24 HOUR PATCH TD PRN (09:00)
[2021-10-17] MEDS: ACETAMINOPHEN 325 MG TABLET PO PRN (14:47)
[2021-10-17 16:21] VITALS: BP 115/79
[2021-10-17 18:37] LABS: COVID AG,FIA SOURCE NASAL SWAB
[2021-10-17] MEDS: OLANZapine 10 MG TABLET PO SCH (20:17)
[2021-10-18 08:19] VITALS: BP 98/68
[2021-10-18] MEDS: IBUPROFEN 600 MG TABLET PO PRN (08:19)
[2021-10-18] MEDS: LORazepam 2 MG TABLET PO PRN (08:19)
[2021-10-18] MEDS: HALOPERIDOL 5 MG TABLET PO PRN (08:19)
[2021-10-18] MEDS ORDERED: CLON0.1T2 PO (08:28)
[2021-10-18] MEDS: ALBUTEROL SULFATE HFA 90 MCG/PUFF 8 GM INHALER IH PRN (08:49)
== END 2021-10-18 11:10 | disposition home or self-care (01) | DRG 885 ==
LOC: EMS 18:18 → 3EC 10-10 21:10
PROVIDERS: ADMIT Psychiatry & Neurology Psychiatry; ATTEND Psychiatry & Neurology Psychiatry
DX: F20.0 Paranoid schizophrenia (principal); R45.851 Suicidal ideations; Z20.822 Contact with and (suspected) exposure to COVID-19; F12.90 Cannabis use, unspecified, uncomplicated; F15.10 Other stimulant abuse, uncomplicated; F32.A Depression, unspecified; G47.00 Insomnia, unspecified; H54.7 Unspecified visual loss; K59.00 Constipation, unspecified; Z98.2 Presence of cerebrospinal fluid drainage device
CPT/HCPCS: 80053; 80061; 81003; 85025; 99285; G0480; J3535

== ENCOUNTER 2021-11-06 10:36 | Emergency (ER) | payer OTHER ==
[~2021-11-06] VITALS: Ht 175.3 cm; Wt 93.0 kg
[~2021-11-06 10:36] MED LIST changes: +CLON0.1T2 PO
[2021-11-06 11:05] VITALS: BP 110/72
[2021-11-06] MEDS ORDERED: OLAN10TA74 PO (11:05)
== END 2021-11-06 11:15 | disposition home or self-care (01) ==
LOC: EMS 10:42
DX: F20.9 Schizophrenia, unspecified (principal); F17.200 Nicotine dependence, unspecified, uncomplicated; F12.90 Cannabis use, unspecified, uncomplicated; Z88.0 Allergy status to penicillin; Z76.0 Encounter for issue of repeat prescription
CPT/HCPCS: 99281; Z7502

== ENCOUNTER 2021-11-20 14:09 | Emergency (ER) | payer OTHER ==
[~2021-11-20] VITALS: Ht 170.2 cm; Wt 96.8 kg
[2021-11-20] MEDS ORDERED: OLAN10TA74 PO (14:53)
[2021-11-20 15:26] VITALS: BP 130/85
== END 2021-11-20 15:38 | disposition home or self-care (01) ==
LOC: EMS 14:16
DX: F20.9 Schizophrenia, unspecified (principal); Z76.0 Encounter for issue of repeat prescription
CPT/HCPCS: 99281; Z7502

== ENCOUNTER 2021-12-04 14:35 | Emergency (ER) | payer OTHER ==
[~2021-12-04] VITALS: Ht 175.3 cm; Wt 90.9 kg
[2021-12-04 16:39] VITALS: BP 114/68
[2021-12-04] MEDS ORDERED: SULF-261 PO (16:59)
[2021-12-04] MEDS ORDERED: OLAN10TA26 PO (17:04)
== END 2021-12-04 17:17 | disposition home or self-care (01) ==
LOC: EMS 14:43
DX: L08.9 Local infection of the skin and subcutaneous tissue, unspecified (principal); F20.9 Schizophrenia, unspecified; F17.210 Nicotine dependence, cigarettes, uncomplicated; F12.90 Cannabis use, unspecified, uncomplicated; Z88.0 Allergy status to penicillin; Z76.0 Encounter for issue of repeat prescription
CPT/HCPCS: 99283